=== PATIENT | male | born 1945 | race African-American/Black ===

== ENCOUNTER 2018-05-03 06:57 | Day surgery (SDC) | payer OTHER, BC ==
[2018-05-02 13:56] VITALS: BMI 30.2
[2018-05-03 08:40] VITALS: TEMP 97.8
[2018-05-03 08:50] VITALS: PULSE 55
[2018-05-03 09:46] VITALS: BP 121/66
--- NOTE | 2018-05-04 16:22 | PATH ---
Surgical Pathology Report Patient Name: BETO DIAZ [facility]. Rec. #: [id number] /Age/Gender: 1945 (Age: 72) / M Account: [id number] Location: U-ENDOSCOPY Taken: 05/03/2018 Received: 05/03/2018 Reported: 05/04/2018 Physicians: Obi Díaz M.D. Specimen(s) Received BX HEPATIC FLEXURE POLYP Clinical History Polyp surveillance Final Diagnosis HEPATIC FLEXURE, POLYP, POLYPECTOMY: TUBULAR ADENOMA. Electronically Signed Michael Ramos M.D. Gross Description Received in formalin, labeled "biopsy polyp from hepatic flexure" are 2 keith, irregular portions of soft tissue measuring 0.4 cm. in greatest dimension. The specimen is submitted in toto in one cassette. RASHID/05/03/2018 donald/05/03/2018
== END 2018-05-03 09:46 | disposition home or self-care (01) ==
LOC: JASU-ENDO 06:57
PROVIDERS: ATTEND Internal Medicine Gastroenterology
PROC: 0DBL8ZX Excision of Transverse Colon, Via Natural or Artificial Opening Endoscopic, Diagnostic (ICD-10-PCS; principal; 2018-05-03 08:00)
DX: Z12.11 Encounter for screening for malignant neoplasm of colon (principal); Z86.010 Personal history of colon polyps; K63.5 Polyp of colon; K57.30 Diverticulosis of large intestine without perforation or abscess without bleeding

== ENCOUNTER 2019-07-01 10:05 | Inpatient (IN) | payer OTHER, BC ==
--- NOTE | 2019-07-01 10:27 | PDOC ---
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 Pt states he has been having productive yellow cough associated with nasal congestion x 5 days, with the cough improving. he has been taking robitussin and mucinex, with some improvement. associated with sore throat and hoarse voice. denies SOB, chest pain, fever or chills. He also endorses multiple episodes of watery brown, dark diarrhea x 10 episodes per day during this time, not associated with n/v or abdominal pain He also endorses 3-4 weeks of urinary burning "sometimes," as well as frequency and urgency. No sick contacts or travel. No new changes in medications. No suspicious food intake or triggers or other sick contacts with similar respiratory/GI sx. 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 Social history: Lives with family. No tobacco, ETOH or drug use. Meds: as documented in EMR PMD: Dr Hyatt Review of systems Constitutional: no fevers or chills. No weakness HEENT: +dizziness. +congestion. +sore throat. +hoarse voice. no headache No visual/hearing disturbances. no ear pain, no eye pain or discharge. CVS: no cp or syncope. no palpitations. Resp: no sob. +cough and congestion. Gastrointestinal: no abdominal pain, nausea, vomiting, +diarrhea. Genitourinary: no hematuria. +urgency, frequency and dysuria. MUSCULOSKELETAL: No joint pain and swelling. No neck or back pain. SKIN: no redness or skin changes, no discharge, no rash. No wounds. Hematologic: no easy bruising/bleeding. NEUROLOGIC: No headache, LOC or altered mental status. No weakness, numbness or tingling. Psych: no anxiety or depression Allergic/Immunologic: pcn allergies All other systems reviewed and negative, or as documented in HPI. Physical exam General: awake and alert, NAD. HEENT: NCAT, PERRL, EOMI, clear conjunctiva, anicteric, dry mucus membranes, clear oropharynx, no oral lesions.. no tonsillar hypertrophy, no erythema. no exudates. +hoarse voice, airway patent. no sinus tenderness. Neck: neck supple, FROM Resp: +bilateral expiratory wheezing. normal and even respirations, no respiratory distress CVS: RRR, no murmurs, 2+ peripheral pulses throughout, no peripheral edema Abdomen: soft, NTND, no rebound or guarding. no CVAT Back: nontender, normal inspection and ROM MSK: no edema, JAMA x4, ROM intact. No clubbing or cyanosis. normal bulk and tone. Extremities: no calf tenderness Neuro: alert, oriented appropriately; no focal neurologic deficits Psych: Calm and cooperative Skin: warm and well perfused, cap refill <2 sec, normal color, no rash or skin discoloration. 07/01/19 10:27 07/01/19 10:28 07/01/19 10:45 07/01/19 10:48 07/01/19 12:49 Past History - Past Medical History Allergies/Adverse Reactions: Allergies Allergy/AdvReac Type Severity Reaction Status Date / Time Penicillins Allergy Difficulty Verified 07/01/19 10:13 Breathing Home Medications: Ambulatory Orders Ranolazine [Ranexa] 1,000 mg PO BID 02/26/14 Simvastatin [Zocor -] 80 mg PO DAILY 02/26/14 propRANOLol HCL [Inderal LA -] 160 mg PO HS 12/04/14 Chlorthalidone 25 mg PO DAILY 07/01/19 Losartan Potassium 100 mg PO DAILY 07/01/19 Telmisartan 80 mg PO DAILY 07/01/19 Anemia: No Asthma: No Cancer: Yes (LARYNGEAL,PROSTATE) Cardiac Disorders: Yes (CAD,ASHD,CARDIAC STENTS X5,ANGINA) CVA: No COPD: No CHF: No Dementia: No Diabetes: No GI Disorders: Yes (DIVERTICULOSIS,ESOPHAGITIS,GERD,GASTRITIS,HIATAL HERNIA) Disorders: No HTN: Yes Hypercholesterolemia: Yes Liver Disease: No Seizures: No Thyroid Disease: No - Surgical History Abdominal Surgery: No Appendectomy: No Cardiac Surgery: Yes (CARDIAC [id number],2006-) Cholecystectomy: No Lung Surgery: No Neurologic Surgery: No Orthopedic Surgery: No - Immunization History Immunization Up to Date: Yes - Psycho Social/Smoking Cessation Hx Smoking History: Never smoked Have you smoked in the past 12 months: No Number of Cigarettes Smoked Daily: 0 If you are a former smoker, when did you quit?: 1978 Cigars Per Day: 0 Hx Alcohol Use: No Drug/Substance Use Hx: No Substance Use Type: None Hx Substance Use Treatment: No *Physical Exam - Vital Signs Last Vital Signs Temp Pulse Resp BP Pulse Ox 97.4 F L 65 18 115/64 99 07/01/19 10:10 07/01/19 10:10 07/01/19 10:10 07/01/19 10:10 07/01/19 10:10 Heart Score/ECG Review #1 ECG reviewed & interpreted by me at: 13:25 General ECG Interpretation: Sinus Rhythm, Normal Rate, Normal Intervals 07/01/19 13:43 sinus rhythm 62 bpm, narrow QRS, normal interval. normal ST segments, T wave morphology normal ED Treatment Course - LABORATORY CBC & Chemistry Diagram: 07/01/19 10:57 07/01/19 10:57 Medical Decision Making - Medical Decision Making 07/01/19 10:55 Vital Signs Temp Pulse Resp BP Pulse Ox 97.4 F L 65 18 115/64 99 07/01/19 10:10 07/01/19 10:10 07/01/19 10:10 07/01/19 10:10 07/01/19 10:10 Vital signs reviewed within normal limits, no tachycardia, no fevers nontoxic- appearing. Saturations are 99% on room air and airway is patent. Differential diagnosis includes viral syndrome, URI, bronchitis, influenza, pneumonia, anemia, dehydration, electrolyte/metabolic derangements Plan for flu swab, basic labs check electrolytes, chest x-ray, duo nebs x3 for the wheezing and reassessment labs and lytes with leukopenia, lower than prior baseline low ~3.5K. lytes normal. Cr function elevated 2.5 (baseline from 2013, closer to 1.0) flu positive tamiflu started, discussed risks and benefits of treatment, pt is elderly and has some risk factors, so he elects for treatment. hydration 2L LR simple O2 mask while getting duoneb, for O2 support, due to mild tachypnea CXR also with LLL pneumonia, infiltrative pattern will cover with ceftriaxone/azithromycin. pcn allergy, low risk of crossreactivity with cephalosporin,<1% especially with 3rd gen. blood cultures ordered x2. 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 s/o admitting hospitalist, Dr Robison, 07/01/19 14:03 Discharge - Discharge Information Problems reviewed: Yes Clinical Impression/Diagnosis: Influenza A, RONALDO (acute kidney injury), Dehydration Pneumonia involving left lung Qualifiers: Pneumonia type: due to unspecified organism Lung location: lower lobe of lung Qualified Code(s): J18.9 - Pneumonia, unspecified organism Condition: Guarded - Admission Yes - Follow up/Referral - Patient Discharge Instructions - Post Discharge Activity
[2019-07-01] MEDS ORDERED: ALBUTEROL SO4 2.5/IPRATROPIUM 0.5 INH SOL 3 ML VIAL.NEB. NEB ONE ×4 (10:40→10:45)
[2019-07-01 11:13] LABS: BASO % 0.5 % (0-2.0); EOS % 0.2 % (0-4.5); HEMATOCRIT 36.7 % (35.4-49); HEMOGLOBIN 12.1 GM/dL (11.7-16.9); MCH 30.8 pg (25.7-33.7); MEAN CELL VOLUME 93.4 fl (80-96); MEAN PLT VOLUME 8.4 fl (7.5-11.1); MONO % 11.6 % (3.8-10.2); NEUT % 47.7 % (42.8-82.8); PLATELET COUNT 178 K/MM3 (134-434); RBC 3.93 M/mm3 (4.00-5.60); RDW 13.2 % (11.9-15.9); WHITE BLOOD COUNT 2.5 K/mm3 (4.0-10.0)
[2019-07-01] MEDS ORDERED: LOPERAMIDE HCL 2 MG CAPSULE PO ONE (11:16)
[2019-07-01] MEDS ORDERED: OSELTAMIVIR PHOSPHATE 75 MG CAPSULE PO ONE (11:16)
[2019-07-01] MEDS ORDERED: OSELTAMIVIR PHOSPHATE 75 MG CAPSULE ONE ×2 (11:35→21:56)
[2019-07-01] MEDS ORDERED: LOPERAMIDE HCL 2 MG CAPSULE ONE (11:36)
[2019-07-01 11:44] LABS: ALBUMIN 3.5 g/dl (3.4-5.0); BILIRUBIN,TOTAL 0.4 mg/dL (0.2-1); BLOOD UREA NITROGEN 48.1 mg/dL (7-18); CALCIUM 9.3 mg/dL (8.5-10.1); CREATININE 2.5 mg/dL (0.55-1.3); POTASSIUM 4.1 mmol/L (3.5-5.1); TOT PROT 6.7 g/dl (6.4-8.2)
[2019-07-01] MEDS ORDERED: LACTATED RINGERS SOLUTION 1000 ML INFUS.BAG IV ONE ×2 (12:45)
[2019-07-01] MEDS ORDERED: CEFTRIAXONE 1,000 MG in DEXTROSE 5%-WATER - 50 ML IVPB ONE (13:57)
[2019-07-01] MEDS ORDERED: AZITHROMYCIN 500 MG TABLET PO ONE (13:57)
[2019-07-01] MEDS ORDERED: CEFTRIAXONE 1 GM/50 ML BAG ONE (14:05)
[2019-07-01] MEDS ORDERED: AZITHROMYCIN 500 MG TABLET ONE (14:05)
--- NOTE | 2019-07-01 14:47 | HP ---
CC: Diarrhea, flu HISTORY OF PRESENT ILLNESS: Thank you Dr. Hyatt for allowing [facility] to take part in the ongoing care of your patient. In summation, the patient presents for transient shortness of breath alongside abdominal pain that is been present since around Coward. Nothing makes it better or worse, he is not requiring oxygen. He has not had these symptoms before. He was around some sick contacts around the holidays, but he does not know if they are diagnosed with anything in particular. He denies any specific chest pain, shortness of breath, medication changes. Denies recent abdominal surgeries, denies recent antibiotic use. The diarrhea is watery and brown it is up to 5-10 episodes per day. He denies any history of prior renal disease and is noted to have elevated creatinine but is still making urine. He was given tamiflu in ER; PCP contacted by their staff but unable to ascertain baseline Cr. PAST MEDICAL HISTORY: Per history of present illness, medication list reviewed with patient is being reconciled. CAD (patient of Dr. Jones seen here by Dr. Vásquez in the past). PAST SURGICAL HISTORY: No recent surgical procedures Social History: Patient denies ongoing alcohol, IV drug, or tobacco abuse Allergies Penicillins Allergy (Verified 07/01/19 10:13) Difficulty Breathing HOME MEDICATIONS: Home Medications Medication Instructions Recorded Aspirin [ASA -] 81 mg PO DAILY 12/24/13 Cranberry Fruit Extract [Cranberry 1 gm PO BID 02/26/14 Extract] Losartan/Hydrochlorothiazide 1 each PO DAILY 02/26/14 [Hyzaar 100-12.5 Tablet] Ranolazine [Ranexa] 1,000 mg PO BID 02/26/14 Simvastatin [Zocor -] 80 mg PO DAILY 02/26/14 propRANOLol HCL [Inderal LA -] 160 mg PO HS 12/04/14 Atenolol/Chlorthalidone 1 tab PO DAILY 05/02/18 [Atenolol-Chlorthalidone 100-25] REVIEW OF SYSTEMS 10 sys ROS done and negative aside from HPI PHYSICAL EXAMINATION Vital Signs - 24 hr 07/01/19 07/01/19 10:10 11:14 Temperature 97.4 F L Pulse Rate 65 Respiratory 18 Rate Blood Pressure 115/64 O2 Sat by Pulse 99 100 Oximetry (%) GENERAL: Awake, alert, and fully oriented, in no acute distress. HEAD: Normal with no signs of trauma. EYES: Pupils equal, round and reactive to light, extraocular movements intact, sclera anicteric, conjunctiva clear. No lid lag. EARS, NOSE, THROAT: Ears normal, nares patent, oropharynx clear without exudates. Moist mucous membranes. NECK: Normal range of motion, supple without lymphadenopathy, JVD, or masses. LUNGS: Breath sounds equal, clear to auscultation bilaterally. No wheezes, and no crackles. No accessory muscle use. HEART: Regular rate and rhythm, normal S1 and S2 without murmur, rub or gallop. ABDOMEN: Soft, nontender, not distended, normoactive bowel sounds, no guarding, no rebound, no masses. No hepatomegaly or splenomegaly. MUSCULOSKELETAL: Normal range of motion at all joints. No bony deformities or tenderness. No CVA tenderness. UPPER EXTREMITIES: 2+ pulses, warm, well-perfused. No cyanosis. No clubbing. No peripheral edema. LOWER EXTREMITIES: 2+ pulses, warm, well-perfused. No calf tenderness. No peripheral edema. NEUROLOGICAL: Cranial nerves II-XII intact. Normal speech. Normal gait. PSYCHIATRIC: Cooperative. Good eye contact. Appropriate mood and affect. SKIN: Warm, dry, normal turgor, no rashes or lesions noted, normal capillary refill. Laboratory Results - last 24 hr 07/01/19 07/01/19 07/01/19 10:42 10:57 10:57 WBC 2.5 L RBC 3.93 L Hgb 12.1 Hct 36.7 MCV 93.4 MCH 30.8 MCHC 33.0 RDW 13.2 Plt Count 178 MPV 8.4 Absolute Neuts (auto) 1.2 L Neutrophils % 47.7 D Lymphocytes % 40.0 D Monocytes % 11.6 H Eosinophils % 0.2 D Basophils % 0.5 Nucleated RBC % 0 Sodium 137 Potassium 4.1 Chloride 107 Carbon Dioxide 24 Anion Gap 6 L BUN 48.1 H Creatinine 2.5 H Est GFR (CKD-EPI)AfAm 28.06 Est GFR (CKD-EPI)NonAf 24.21 Random Glucose 99 Serum Osmolality 298 Calcium 9.3 Total Bilirubin 0.4 AST 26 ALT 29 Alkaline Phosphatase 36 L Total Protein 6.7 Albumin 3.5 Influenza A (Rapid) Positive A Influenza B (Rapid) Negative EKG reviewed CXR reviewed; lobar infiltrate Flu A+ CT chest pending CT abdomen/pelvis pending to r/o renal stone, etc. given cyclincal pain and +UA Ucx, Bcx, Scx, Legionella/PNC Ag pending Bladder scan pending Pulmonary consult pending ASSESSMENT/PLAN: Patient presents with a chief complaint of diarrhea as well as shortness of breath, he has potential pneumonia on chest x-ray as well as diarrhea with potential colitis. He has positive influenza A on nasal swab and monocytosis with leukopenia and evident on his CBC. HE STATES THAT HE GAVE HIS MEDICATIONS TO NURSING. I TRIED TO CALL PHARMACY TO VERIFY BUT CLOSED. WILL DO IN AM AND RESTART HOME MEDS NEEDED. Problems include: Influenza +/- Bacterial PNA with lobar infiltrate and history consistent with CAP (Abx, FU micro) RONALDO (multiple LEONARDO inhibitors on home med list; need to verify. That with chlorthalidone easily could have contributed) Diarrhea (Likely 2/2 diarrhea but given leukopenia with mild monocytosis at least sent out some studies in case reflects underlying issues) Monocytosis (seen with acute viral syndrome; monitor) Hx CAD, no current symptoms. Prior CV testing noted per documentation. Hx HLD Hx Prostate Cancer Obesity (BMI 30.7) Visit type - Emergency Visit Emergency Visit: Yes ED Registration Date: 07/01/19 Care time: The patient presented to the Emergency Department on the above date and was hospitalized for further evaluation of their emergent condition. - New Patient This patient is new to me today: Yes Date on this admission: 07/01/19 - Critical Care Critical Care patient: No
[2019-07-01 14:53] LABS: EPI CELLS 2.2 /HPF (0-5/HPF); HYALINE CASTS 1 /lpf (0-8); URINE APPEARANCE CLEAR; URINE BACTERIA 992.3 /hpf (NEGATIVE); URINE BILIRUBIN NEGATIVE (NEGATIVE); URINE COLOR YELLOW; URINE GLUCOSE (UA) NEGATIVE (NEGATIVE); URINE KETONE NEGATIVE (NEGATIVE); URINE LEUK ESTERASE TRACE (NEGATIVE); URINE NITRITE POSITIVE (NEGATIVE); URINE PROTEIN TRACE (NEGATIVE); URINE RBC 1 /hpf (0-4); URINE UROBILINOGEN 0.2 mg/dL (0.2-1.0); URINE WBC 13 /hpf (0-5)
[2019-07-01] MEDS: OSELTAMIVIR PHOSPHATE 75 MG CAPSULE PO SCH (22:23)
[2019-07-02 06:43] LABS: HEMATOCRIT 34.4 % (35.4-49); HEMOGLOBIN 11.6 GM/dL (11.7-16.9); MCH 31.3 pg (25.7-33.7); MCHC 33.7 g/dl (32.0-35.9); MEAN CELL VOLUME 92.9 fl (80-96); MEAN PLT VOLUME 8.8 fl (7.5-11.1); PLATELET COUNT 175 K/MM3 (134-434); RDW 13.2 % (11.9-15.9); WHITE BLOOD COUNT 2.7 K/mm3 (4.0-10.0)
[2019-07-02 07:24] LABS: ALBUMIN 3.3 g/dl (3.4-5.0); BILIRUBIN,TOTAL 0.4 mg/dL (0.2-1); BLOOD UREA NITROGEN 38.7 mg/dL (7-18); CALCIUM 8.9 mg/dL (8.5-10.1); CREATININE 1.9 mg/dL (0.55-1.3); MAGNESIUM 1.8 mg/dL (1.8-2.4); TOT PROT 6.1 g/dl (6.4-8.2)
[2019-07-02] MEDS ORDERED: AZITHROMYCIN IVPB 500 MG in DEXTROSE 5%-WATER - 250 ML IVPB SCH (10:00)
[2019-07-02] MEDS: CEFTRIAXONE 1 GM in DEXTROSE 5%-WATER - 50 ML IVPB SCH (11:00)
[2019-07-02] MEDS: OSELTAMIVIR PHOSPHATE 75 MG CAPSULE PO SCH ×2 (11:00→22:02)
--- NOTE | 2019-07-02 11:31 | EKG ---
Test Reason : Blood Pressure : / mmHG Vent. Rate : 062 BPM Atrial Rate : 062 BPM P-R Int : 176 ms QRS Dur : 092 ms QT Int : 416 ms P-R-T Axes : 054 -02 023 degrees QTc Int : 422 ms NORMAL SINUS RHYTHM NORMAL ECG WHEN COMPARED WITH ECG OF 26-FEB-2014 05:10, T WAVE VARIATION Confirmed by BRANDI MCCARTY MD ([id number]) on 07/02/2019 11:31:31 AM Referred By: Confirmed By:BRANDI MCCARTY MD
[2019-07-02] MEDS ORDERED: OSELTAMIVIR PHOSPHATE 75 MG CAPSULE ONE (12:14)
[2019-07-02] MEDS ORDERED: AZITHROMYCIN IVPB 500 MG/250 ML BAG IVPB ONE (12:15)
[2019-07-02] MEDS ORDERED: CEFTRIAXONE 1 GM/50 ML BAG ONE (12:15)
[2019-07-02] MEDS: RANOLAZINE E.R. 1,000 MG TABLET (FP) PO SCH ×2 (12:41→22:02)
--- NOTE | 2019-07-02 12:47 | PN ---
Progress Note (short form) - Note Progress Note: Hospitalist Medicine Resting in bed, upset that his room in the ED is cold. Has had productive cough w/ yellow sputum. Feeling weak Vitals 07/02/19 07:00 Pulse Rate [ 64 Apical] Respiratory 16 Rate Blood Pressure 129/69 [Left Arm] O2 Sat by Pulse 96 Oximetry (%) Physical Exam general: resting in bed, +hoarse voice heent: NCAT neck: +mild cervical lymphadenopathy appreciated cardio: S1, S2 RRR. no r/m/g pulm: +few wheezes. no accessory m usage abdomen: nontender, nondistended. obese LE: 2+ pulses no edema neuro: offbearer 2-12 grossly intact Laboratory Tests 07/01/19 07/02/19 07/02/19 10:42 05:40 05:40 WBC 2.7 L Hgb 11.6 L Hct 34.4 L Plt Count 175 Sodium 140 Potassium 4.0 Chloride 110 H Carbon Dioxide 23 BUN 38.7 H Creatinine 1.9 H Random Glucose 96 Alkaline Phosphatase 35 L Total Protein 6.1 L Albumin 3.3 L HIV 1&2 Ag/Ab, 4th Gen Influenza A (Rapid) Positive A Influenza B (Rapid) Negative 07/02/19 05:40 Hgb Albumin Hep C Ab Diagnostic Pending HIV 1&2 Ag/Ab, 4th Gen Pending Influenza A (Rapid) Influenza B (Rapid) Microbiology 07/01/19 14:41 Urine - Urine Clean Catch Urine Culture - Preliminary Lactose Fermenting Neg Bacilli Imaging 07/01/19: CXR: LLL infiltrate, suspicious for LLL PNA. 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 #CAP, flu+ -w/ LLL infiltrate, fluA+ -on cef, zithro (07/02) -on tamiflu 75mg BID (07/01) -ucx (+) lact ferm (-) bacilli, covered by cef -c/t follow blood, ucx, stool studies, sputum cx -isolation precautions -encourage PO intake -Tylenol PRN for fever/pain -f/u chest CT #R/o nephrolithiasis -f/u spiral CT, done - result, pending -as w/ UTI #Diarrhea -likely 2/2 PNA, flu -however f/u stool studies #RONALDO vs. RONALDO on CKD -unknown baseline -continue to encourage PO intake -f/u spiral CT -f/u urine lytes #CAD -c/w ranexa #HTN -c/w propranolol #F/E/N encourage PO intake continue to follow lytes reg diet, as tolerated #PPX DVT: SCD's #Dispo admitted to med-surg pending bed from ER <TeeteeCharity - Last Filed: 07/02/19 15:14> - Note Progress Note: Seen and examined; please see resident note for further histoorical details. I agre with the plan and historical information as deetailed above aside from as supplementeed below. I personally verified all shaffer historical and PE findings in addition to diagnostic, lab, and imaging data. Discussed at length with the resident team and indicated consulting services. No further subjective issues. 10 sys ROS done and neegative aside from HPI VS labs imaging done and negative aside from HPI NAD AAO resting in bed not on O2 CN2-12 at established baseline with no new FNDs. HR wnl,+s1/2 Lungs clear, w/ sym exp NT ND +BS Neck without JVD or thyromegaly Microbiology 07/02/19 20:55 Sputum - Expectorated Gram Stain - Final 07/01/19 14:18 Blood - Peripheral Venous Blood Culture - Preliminary NO GROWTH OBTAINED AFTER 48 HOURS, INCUBATION TO CONTINUE FOR 3 DAYS. 07/01/19 14:18 Blood - Peripheral Venous Blood Culture - Preliminary NO GROWTH OBTAINED AFTER 48 HOURS, INCUBATION TO CONTINUE FOR 3 DAYS. 07/02/19 20:40 Urine For Antigen Detection Legionella Antigen - Final 07/02/19 20:40 Urine For Antigen Detection Streptococcus pneumoniae Antigen (M - Final 07/01/19 14:41 Urine - Urine Clean Catch Urine Culture - Final Klebsiella Pneumoniae CT chest final read pending EKG reviewed CXR reviewed; lobar infiltrate Flu A+ CT abdomen/pelvis pending to r/o renal stone, etc. given cyclincal pain and +UA ; read pending alongside chest study Ucx, Bcx, Scx, Legionella/PNC Ag pending Bladder scan pending Pulmonary consult pending ASSESSMENT/PLAN: Improved; CAP likely with flu A+, diarrhea improved. Problems include: Influenza +/- Bacterial PNA with lobar infiltrate and history consistent with CAP (Abx, FU micro) RONALDO (multiple LEONARDO inhibitors on home med list; need to verify. That with chlorthalidone easily could have contributed) Diarrhea (Likely 2/2 diarrhea but given leukopenia with mild monocytosis at least sent out some studies in case reflects underlying issues) Monocytosis (seen with acute viral syndrome; monitor) Hx CAD, no current symptoms. Prior CV testing noted per documentation. Hx HLD Hx Prostate Cancer Obesity (BMI 30.7) <Hipolito Boudreaux - Last Filed: 07/04/19 06:22>
[2019-07-02] MEDS ORDERED: ACETAMINOPHEN 325 MG TABLET (FP) PO PRN (12:53)
[2019-07-02 13:33] LABS: MAGNESIUM 2.2 mg/dL (1.8-2.4)
--- NOTE | 2019-07-02 15:18 | CONSULT ---
Consult Consult Specialty:: Nephrology Reason for Consultation:: RONALDO - History of Present Illness Chief Complaint: diarrhea History of Present Illness: Pt is a 73 year old male with pmhx of laryngeal cancer, cad, gerd, htn, hld and prostate cancer who presents to the ER with cough. He also complains of diarrhea on the and . He says that he had over 20 episodes. He was found to be in acute renal failure and I was called to evaluate him. He denies history of CKD. He is on an arb at home. He denies nsaid use. He was found to be positive for Flu. 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 History of Recent Travel: No Home Medications - Allergies Allergies/Adverse Reactions: Allergies Allergy/AdvReac Type Severity Reaction Status Date / Time Penicillins Allergy Difficulty Verified 07/01/19 10:13 Breathing - Home Medications Home Medications: Ambulatory Orders Ranolazine [Ranexa] 1,000 mg PO BID 02/26/14 Simvastatin [Zocor -] 80 mg PO DAILY 02/26/14 propRANOLol HCL [Inderal LA -] 160 mg PO HS 12/04/14 Chlorthalidone 25 mg PO DAILY 07/01/19 Losartan Potassium 100 mg PO DAILY 07/01/19 Telmisartan 80 mg PO DAILY 07/01/19 Family Medical History Family History: Denies Review of Systems - Review of Systems Constitutional: reports: Malaise Eyes: reports: No Symptoms HENT: reports: No Symptoms Neck: reports: No Symptoms Cardiovascular: reports: No Symptoms Respiratory: reports: Cough Gastrointestinal: reports: Diarrhea Genitourinary: reports: No Symptoms Musculoskeletal: reports: No Symptoms Integumentary: reports: No Symptoms Neurological: reports: No Symptoms Endocrine: reports: No Symptoms Hematology/Lymphatic: reports: No Symptoms Psychiatric: reports: No Symptoms Physical Exam Vital Signs: Vital Signs Temperature 98.2 F 07/02/19 10:06 Pulse Rate 82 07/02/19 10:06 Respiratory Rate 82 H 07/02/19 10:06 Blood Pressure 121/78 07/02/19 10:06 O2 Sat by Pulse Oximetry (%) 100 07/02/19 10:06 Constitutional: Yes: Calm Eyes: Yes: Conjunctiva Clear HENT: Yes: Atraumatic Neck: Yes: Supple Cardiovascular: Yes: S1, S2 Respiratory: Yes: CTA Bilaterally Gastrointestinal: Yes: Normal Bowel Sounds, Soft Renal/: Yes: WNL Musculoskeletal: Yes: WNL Extremities: Yes: WNL Edema: No Neurological: Yes: Oriented Psychiatric: Yes: Oriented Labs: CBC, BMP 07/02/19 05:40 07/02/19 05:40 Laboratory Tests 07/01/19 07/01/19 07/02/19 10:57 14:41 05:40 Creatinine 2.5 H 1.9 H Urine Protein Trace Urine Blood Negative Imaging - Results Chest X-ray: Report Reviewed Ultrasound: Report Reviewed Problem List - Problems (1) RONALDO (acute kidney injury) Code(s): N17.9 - ACUTE KIDNEY FAILURE, UNSPECIFIED (2) Dehydration Code(s): E86.0 - DEHYDRATION (3) Influenza A Code(s): J10.1 - FLU DUE TO OTH IDENT INFLUENZA VIRUS W OTH RESP MANIFEST Assessment/Plan Current Medications Generic Name Dose Route Start Last Admin Trade Name Freq PRN Reason Stop Dose Admin Acetaminophen 650 mg 07/02/19 12:53 Tylenol - PO Q6H PRN MODERATE PAIN Atorvastatin Calcium 40 mg 07/02/19 22:00 Lipitor - PO HS CINDY Azithromycin 500 mg/ Dextrose 250 mls @ 250 mls/hr 07/02/19 10:00 07/02/19 11 :00 IVPB 250 mls/hr DAILY CINDY Administration Ceftriaxone Sodium 1 gm/ 50 mls @ 100 mls/hr 07/02/19 10:00 07/02/19 11:00 Dextrose IVPB 100 mls/hr DAILY CINDY Administration Oseltamivir Phosphate 75 mg 07/01/19 22:00 07/02/19 11:00 Tamiflu - PO 07/06/19 21:59 75 mg BID CINDY Administration Propranolol HCl 160 mg 07/02/19 22:00 Inderal La - PO HS CINDY Ranolazine 1,000 mg 07/02/19 10:00 07/02/19 12:41 Ranexa - PO Not Given BID CINDY Impression 1. RONALDO 2. htn 3. influenza 4. prostate cancer 5. laryngeal cancer 6. hld Plan - pt says olmesartan was switched to losartan, he is not taking both - renal function is improving - will restart fluids - repeat labs in am - likely pre-renal disease - avoid nsaids - hold arb for now
[2019-07-02] MEDS ORDERED: SODIUM CHLORIDE 0.45% 1,000 ML IV SCH (18:30)
[2019-07-02 18:45] VITALS: BMI 29.0
[2019-07-02] MEDS ORDERED: PT OWN MED DRAWER 7, Y5N ONE (21:10)
[2019-07-02] MEDS: ATORVASTATIN CA 40 MG TABLET (FP) PO SCH (22:02)
[2019-07-03 08:15] LABS: BASO % 0.4 % (0-2.0); EOS % 1.3 % (0-4.5); HEMATOCRIT 33.9 % (35.4-49); HEMOGLOBIN 11.4 GM/dL (11.7-16.9); LYMPH % 44.1 % (8-40); MCH 31.1 pg (25.7-33.7); MCHC 33.5 g/dl (32.0-35.9); MEAN CELL VOLUME 92.7 fl (80-96); MEAN PLT VOLUME 8.7 fl (7.5-11.1); MONO % 13.2 % (3.8-10.2); PLATELET COUNT 165 K/MM3 (134-434); RBC 3.66 M/mm3 (4.00-5.60); RDW 12.8 % (11.9-15.9); WHITE BLOOD COUNT 2.6 K/mm3 (4.0-10.0)
[2019-07-03 08:45] LABS: ALBUMIN 3.2 g/dl (3.4-5.0); BILIRUBIN,TOTAL 0.6 mg/dL (0.2-1); BLOOD UREA NITROGEN 30.2 mg/dL (7-18); CREATININE 1.6 mg/dL (0.55-1.3); MAGNESIUM 2.2 mg/dL (1.8-2.4); N-TERMINAL BNP 470.8 pg/ml (5-450); PHOSPHOROUS 2.7 mg/dL (2.5-4.9)
[2019-07-03] MEDS ORDERED: cefTRIAXone SODIUM 1 GM VIAL ONE (10:05)
[2019-07-03] MEDS ORDERED: DEXTROSE 5%-WATER - 50 ML IVPB ONE (10:05)
[2019-07-03] MEDS: CEFTRIAXONE 1 GM in DEXTROSE 5%-WATER - 50 ML IVPB SCH (10:31)
[2019-07-03] MEDS: AZITHROMYCIN IVPB 500 MG/250 ML BAG IVPB SCH (10:32)
[2019-07-03] MEDS: OSELTAMIVIR PHOSPHATE 75 MG CAPSULE PO SCH ×2 (10:35→22:17)
[2019-07-03] MEDS: RANOLAZINE E.R. 1,000 MG TABLET (FP) PO SCH ×2 (10:35→22:17)
--- NOTE | 2019-07-03 17:00 | PN ---
Progress Note (short form) - Note Progress Note: Hospitalist Medicine still w/ raspy voice. States that he feels as if his breathing has improved Vitals 07/03/19 14:00 Temperature 98.7 F Pulse Rate 80 Respiratory 18 Rate Blood Pressure 125/61 Physical Exam general: resting in bed, +hoarse voice heent: NCAT cardio: S1, S2 RRR. no r/m/g pulm: +wheezes. no accessory m usage abdomen: nontender, nondistended. obese LE: 2+ pulses no edema neuro: peanut cleaner 2-12 grossly intact Laboratory Tests 07/03/19 07/03/19 07:20 07:20 WBC 2.6 L Hgb 11.4 L Hct 33.9 L Plt Count 165 Sodium 140 Potassium 4.0 Chloride 107 Carbon Dioxide 26 BUN 30.2 H Creatinine 1.6 H Random Glucose 96 Alkaline Phosphatase 36 L B-Natriuretic Peptide 470.8 H Total Protein 6.0 L Albumin 3.2 L Microbiology 07/02/19 20:55 Sputum - Expectorated Gram Stain - Final 07/02/19 20:40 Urine For Antigen Detection Legionella Antigen - Final 07/02/19 20:40 Urine For Antigen Detection Streptococcus pneumoniae Antigen (M - Final 07/01/19 14:41 Urine - Urine Clean Catch Urine Culture - Final Klebsiella Pneumoniae 07/01/19 14:18 Blood - Peripheral Venous Blood Culture - Preliminary NO GROWTH OBTAINED AFTER 48 HOURS, INCUBATION TO CONTINUE FOR 3 DAYS. 07/01/19 14:18 Blood - Peripheral Venous Blood Culture - Preliminary NO GROWTH OBTAINED AFTER 48 HOURS, INCUBATION TO CONTINUE FOR 3 DAYS. Imaging 07/01/19: CXR: LLL infiltrate, suspicious for LLL PNA. 07/01/19: CTAP: WNL; no acute abnormality 07/01/19: EKG: NSR, rate 62bpm, qtc 422ms 07/02/19: chest CT, CTAP: minimal atelectasis L base, calc granuloma in lingula , mucous plugging in LLL. centrilobular emphysema in upper lobes. multiple low density lesions in the liver likely represent cysts. correlation with ultrasound is recommended. kidney cyst - L kidney 1.6cm. calcified plaque aorta , no aneurysm. diverticulosis. radiopaque seeds in prostate. increased density in the dome of the bladder could represent a mass or dense fluid within a bladder diverticulum. ultrasound imaging or cyst warranted. healed rib fx. 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 #CAP, flu+ -w/ LLL infiltrate, fluA+ -on cef, zithro (07/02) -on tamiflu 75mg BID (07/01) -ucx (+) klesbsiella -c/t follow blood, ucx, stool studies, sputum cx -isolation precautions -encourage PO intake -Tylenol PRN for fever/pain #R/o ?bladder diverticulum -r/o bladder mass, has hx prostate CA -f/u renal, bladder sono -uro consulted: Dr. Lawson #hx liver cysts -as seen on CTAP -f/u abd sono, as rec per radio #Diarrhea -likely 2/2 PNA, flu -however f/u stool studies #RONALDO vs. RONALDO on CKD -unknown baseline -hold ARB for now -c/w 1/2 NS 100 cc/hr -f/u urine lytes -Nephro: Dr. Sandoval #CAD -c/w ranexa #HTN -c/w propranolol #F/E/N 1/2 NS 100 cc/hr continue to follow lytes reg diet, as tolerated #PPX DVT: SCD's #Dispo cont'd monitoring on med-surg anticipate d/c 24hrs on PO abx, pending uro w/u <Charity Kingsley - Last Filed: 07/03/19 17:10> - Note Progress Note: Seen and examined; please see resident note for further histoorical details. I agre with the plan and historical information as deetailed above aside from as supplementeed below. I personally verified all shaffer historical and PE findings in addition to diagnostic, lab, and imaging data. Discussed at length with the resident team and indicated consulting services. No further subjective issues. 10 sys ROS done and neegative aside from HPI VS labs imaging done and negative aside from HPI NAD AAO resting in bed not on O2 CN2-12 at established baseline with no new FNDs. HR wnl,+s1/2 Lungs clear, w/ sym exp NT ND +BS Neck without JVD or thyromegaly Microbiology 07/02/19 20:55 Sputum - Expectorated Gram Stain - Final 07/01/19 14:18 Blood - Peripheral Venous Blood Culture - Preliminary NO GROWTH OBTAINED AFTER 48 HOURS, INCUBATION TO CONTINUE FOR 3 DAYS. 07/01/19 14:18 Blood - Peripheral Venous Blood Culture - Preliminary NO GROWTH OBTAINED AFTER 48 HOURS, INCUBATION TO CONTINUE FOR 3 DAYS. 07/02/19 20:40 Urine For Antigen Detection Legionella Antigen - Final 07/02/19 20:40 Urine For Antigen Detection Streptococcus pneumoniae Antigen (M - Final 07/01/19 14:41 Urine - Urine Clean Catch Urine Culture - Final Klebsiella Pneumoniae ASSESSMENT/PLAN: Improved; CAP likely with flu A+, diarrhea improved. Uro consult pending; pending records with laryngeal CA. Continues ab and is improved with RONALDO. If all is well likely in 24-36H DC. Problems include: CAP w/ Influenza A+ (Abx, FU final cx. Will do 7-10 days with likely transition to PO in the AM) RONALDO (Improved; avoid nephrotoxins and decrrase fluids) Complicated klebsiella UTI (+Cx 100k with Sn <1 Ceft so OK with current coverage ; FU with uro given imaging findings) Likely COPD (Emphysematous changes noted; can consider pred if no symptomatic improvement with FU with pulmonary for OP PFTs and GIANNI eval given obesity) Diarrhea (Resolved) Monocytosis (Improved) Hx CAD, no current symptoms. Prior CV testing noted per documentation. Hx HLD Hx Prostate Cancer Laryngeal Cancer Obesity (BMI 30.7) Full Code <Hipolito Boudreaux - Last Filed: 07/04/19 06:27>
--- NOTE | 2019-07-03 17:29 | CON.GU ---
Consult - History of Present Illness History of Present Illness: 73 yo male with h/o prostate cancer s/p seeds/XRT many yrs ago, last seen in the office approx 4 yrs ago. Now admitted with cough/diarrhea. CT with poss bladder mass. Denies any hematuria. 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 History of Recent Travel: No Home Medications - Allergies Allergies/Adverse Reactions: Allergies Allergy/AdvReac Type Severity Reaction Status Date / Time Penicillins Allergy Difficulty Verified 07/01/19 10:13 Breathing - Home Medications Home Medications: Ambulatory Orders Ranolazine [Ranexa] 1,000 mg PO BID 02/26/14 Simvastatin [Zocor -] 80 mg PO DAILY 02/26/14 propRANOLol HCL [Inderal LA -] 160 mg PO HS 12/04/14 Chlorthalidone 25 mg PO DAILY 07/01/19 Losartan Potassium 100 mg PO DAILY 07/01/19 Telmisartan 80 mg PO DAILY 07/01/19 Physical Exam- Vital Signs: Vital Signs Temperature 98.7 F 07/03/19 14:00 Pulse Rate 80 07/03/19 14:00 Respiratory Rate 18 07/03/19 14:00 Blood Pressure 125/61 07/03/19 14:00 O2 Sat by Pulse Oximetry (%) 94 L 07/02/19 21:00 Labs: CBC, BMP 07/03/19 07:20 07/03/19 07:20 Imaging - Results Cat Scan: Report Reviewed Problem List - Problems (1) Prostate cancer Assessment/Plan: will plan for cystoscopy as outpt. pt understands impottance of follow up. psa ordered Code(s): C61 - MALIGNANT NEOPLASM OF PROSTATE
--- NOTE | 2019-07-03 17:44 | PN ---
Progress Note, Physician History of Present Illness: Pt seen and examined at bedside. He is awake and alert. He feels better today. - Current Medication List Current Medications: Active Medications Acetaminophen (Tylenol -) 650 mg PO Q6H PRN PRN Reason: MODERATE PAIN Atorvastatin Calcium (Lipitor -) 40 mg PO HS [facility] Last Admin: 07/02/19 22:02 Dose: 40 mg Chlorthalidone (Hygroton -) 25 mg PO DAILY [facility] Ceftriaxone Sodium 1 gm/ (Dextrose) 50 mls @ 100 mls/hr IVPB DAILY [facility] Last Admin: 07/03/19 10:31 Dose: 100 mls/hr Sodium Chloride (1/2 Normal Saline) 1,000 mls @ 100 mls/hr IV ASDIR [facility] Last Admin: 07/02/19 19:14 Dose: 100 mls/hr Azithromycin (Zithromax 500mg Ivpb (Pre-Docked)) 500 mg in 250 mls @ 250 mls/ hr IVPB DAILY [facility] Last Admin: 07/03/19 10:32 Dose: 250 mls/hr Oseltamivir Phosphate (Tamiflu -) 75 mg PO BID [facility] Stop: 07/06/19 21:59 Last Admin: 07/03/19 10:35 Dose: 75 mg Propranolol HCl (Inderal La -) 160 mg PO HS [facility] Last Admin: 07/02/19 22:02 Dose: 160 mg Ranolazine (Ranexa -) 1,000 mg PO BID [facility] Last Admin: 07/03/19 10:35 Dose: 1,000 mg - Objective Vital Signs: Vital Signs Temperature 98.7 F 07/03/19 14:00 Pulse Rate 80 07/03/19 14:00 Respiratory Rate 18 07/03/19 14:00 Blood Pressure 125/61 07/03/19 14:00 O2 Sat by Pulse Oximetry (%) 94 L 07/02/19 21:00 Constitutional: Yes: Calm Eyes: Yes: Conjunctiva Clear HENT: Yes: Atraumatic Cardiovascular: Yes: S1, S2 Respiratory: Yes: CTA Bilaterally Genitourinary: Yes: WNL Musculoskeletal: Yes: WNL Edema: No Neurological: Yes: Oriented Psychiatric: Yes: Oriented Labs: CBC, BMP 07/03/19 07:20 07/03/19 07:20 Problem List - Problems (1) RONALDO (acute kidney injury) Code(s): N17.9 - ACUTE KIDNEY FAILURE, UNSPECIFIED (2) Dehydration Code(s): E86.0 - DEHYDRATION (3) Influenza A Code(s): J10.1 - FLU DUE TO OTH IDENT INFLUENZA VIRUS W OTH RESP MANIFEST Assessment/Plan Current Medications Generic Name Dose Route Start Last Admin Trade Name Freq PRN Reason Stop Dose Admin Acetaminophen 650 mg 07/02/19 12:53 Tylenol - PO Q6H PRN MODERATE PAIN Atorvastatin Calcium 40 mg 07/02/19 22:00 07/02/19 22:02 Lipitor - PO 40 mg HS CINDY Administration Chlorthalidone 25 mg 07/04/19 10:00 Hygroton - PO DAILY CINDY Ceftriaxone Sodium 1 gm/ 50 mls @ 100 mls/hr 07/02/19 10:00 07/03/19 10:31 Dextrose IVPB 100 mls/hr DAILY C[facility]Y Administration Sodium Chloride 1,000 mls @ 100 mls/hr 07/02/19 18:30 07/02/19 19:14 1/2 Normal Saline IV 100 mls/hr ASDIR CINDY Administration Azithromycin 500 mg in 250 mls @ 250 mls/hr 07/03/19 10:00 07/03/19 10:32 Zithromax 500mg Ivpb (Pre-Docked) IVPB 250 mls/hr DAILY [facility] Administration Oseltamivir Phosphate 75 mg 07/01/19 22:00 07/03/19 10:35 Tamiflu - PO 07/06/19 21:59 75 mg BID CINDY Administration Propranolol HCl 160 mg 07/02/19 22:00 07/02/19 22:02 Inderal La - PO 160 mg HS C[facility]Y Administration Ranolazine 1,000 mg 07/02/19 10:00 07/03/19 10:35 Ranexa - PO 1,000 mg BID C[facility]Y Administration Impression 1. RONALDO 2. htn 3. influenza 4. prostate cancer 5. laryngeal cancer 6. hld Plan - renal function is improving - can decrease rate of fluids - repeat labs in am - likely pre-renal disease - avoid nsaids - hold arb for now
[2019-07-03] MEDS ORDERED: SODIUM CHLORIDE 0.45% 1,000 ML IV SCH (17:45)
[2019-07-03] MEDS: ATORVASTATIN CA 40 MG TABLET (FP) PO SCH (22:17)
[2019-07-04 08:11] LABS: BASO % 0.2 % (0-2.0); EOS % 0.5 % (0-4.5); HEMATOCRIT 33.8 % (35.4-49); HEMOGLOBIN 11.3 GM/dL (11.7-16.9); LYMPH % 29.2 % (8-40); MCH 31.1 pg (25.7-33.7); MCHC 33.5 g/dl (32.0-35.9); MEAN CELL VOLUME 92.8 fl (80-96); MEAN PLT VOLUME 8.9 fl (7.5-11.1); MONO % 9.4 % (3.8-10.2); NEUT % 60.7 % (42.8-82.8); PLATELET COUNT 179 K/MM3 (134-434); RBC 3.64 M/mm3 (4.00-5.60); RDW 12.9 % (11.9-15.9); WHITE BLOOD COUNT 3.8 K/mm3 (4.0-10.0)
[2019-07-04 08:42] LABS: ALBUMIN 3.2 g/dl (3.4-5.0); BILIRUBIN,TOTAL 1.2 mg/dL (0.2-1); CALCIUM 9.1 mg/dL (8.5-10.1); CREATININE 1.6 mg/dL (0.55-1.3); MAGNESIUM 2.3 mg/dL (1.8-2.4); PHOSPHOROUS 2.4 mg/dL (2.5-4.9); POTASSIUM 4.4 mmol/L (3.5-5.1); TOT PROT 6.2 g/dl (6.4-8.2)
[2019-07-04] MEDS ORDERED: CHLORTHALIDONE 25 MG TABLET PO SCH (10:00)
[2019-07-04] MEDS ORDERED: cefTRIAXone SODIUM 1 GM VIAL ONE (10:24)
[2019-07-04] MEDS ORDERED: DEXTROSE 5%-WATER - 50 ML IVPB ONE (10:24)
[2019-07-04] MEDS: CEFTRIAXONE 1 GM in DEXTROSE 5%-WATER - 50 ML IVPB SCH (10:30)
[2019-07-04] MEDS: AZITHROMYCIN IVPB 500 MG/250 ML BAG IVPB SCH (10:31)
[2019-07-04] MEDS: RANOLAZINE E.R. 1,000 MG TABLET (FP) PO SCH ×2 (10:34→22:51)
[2019-07-04] MEDS: OSELTAMIVIR PHOSPHATE 75 MG CAPSULE PO SCH ×2 (10:34→22:50)
--- NOTE | 2019-07-04 14:05 | PN ---
Progress Note (short form) - Note Progress Note: Patient is comfortable no fever no chills still having mild cough but no nausea vomiting. He has good appetite he is eating well He is ambulatory He is IV antibiotic at this time Vital signs Vital Signs Period Temp Pulse Resp BP Sys/Smart Pulse Ox Last 24 Hr 97.9 F-98.5 F 64-74 17-20 106-141/60-72 95 Physical Exam general: resting in bed, +hoarse voice heent: NCAT cardio: S1, S2 RRR. no r/m/g pulm: +wheezes. no accessory m usage abdomen: nontender, nondistended. obese LE: 2+ pulses no edema neuro: medical orderly 2-12 grossly intact CBC, BMP 07/04/19 07:23 07/04/19 07:23 Microbiology 07/02/19 20:55 Sputum - Expectorated Gram Stain - Final 07/02/19 20:40 Urine For Antigen Detection Legionella Antigen - Final 07/02/19 20:40 Urine For Antigen Detection Streptococcus pneumoniae Antigen (M - Final 07/01/19 14:41 Urine - Urine Clean Catch Urine Culture - Final Klebsiella Pneumoniae 07/01/19 14:18 Blood - Peripheral Venous Blood Culture - Preliminary NO GROWTH OBTAINED AFTER 48 HOURS, INCUBATION TO CONTINUE FOR 3 DAYS. 07/01/19 14:18 Blood - Peripheral Venous Blood Culture - Preliminary NO GROWTH OBTAINED AFTER 48 HOURS, INCUBATION TO CONTINUE FOR 3 DAYS. Imaging 07/01/19: CXR: LLL infiltrate, suspicious for LLL PNA. 07/01/19: CTAP: WNL; no acute abnormality 07/01/19: EKG: NSR, rate 62bpm, qtc 422ms 07/02/19: chest CT, CTAP: minimal atelectasis L base, calc granuloma in lingula , mucous plugging in LLL. centrilobular emphysema in upper lobes. multiple low density lesions in the liver likely represent cysts. correlation with ultrasound is recommended. kidney cyst - L kidney 1.6cm. calcified plaque aorta , no aneurysm. diverticulosis. radiopaque seeds in prostate. increased density in the dome of the bladder could represent a mass or dense fluid within a bladder diverticulum. ultrasound imaging or cyst warranted. healed rib fx. Assessment/Plan 73-year-old male with history of laryngeal cancer status post resection and radiation, CAD, GERD, hypertension, hyperlipidemia, prostate cancer presenting with cough and congestion, He has a positive test for flu and chest x-ray shows pneumonia Continue Tamiflu 75 twice a day also IV antibiotics stool tests are still pending for diarrhea seen by urologist and order bladder sonogram He has high creatinine of 1.6 Dr. Sandoval on the case nephrology Current Medications Acetaminophen (Tylenol -) 650 mg PO Q6H PRN PRN Reason: MODERATE PAIN Atorvastatin Calcium (Lipitor -) 40 mg PO HS [facility] Last Admin: 07/03/19 22:17 Dose: 40 mg Chlorthalidone (Hygroton -) 25 mg PO DAILY [facility] Last Admin: 07/04/19 10:34 Dose: 25 mg Ceftriaxone Sodium 1 gm/ (Dextrose) 50 mls @ 100 mls/hr IVPB DAILY [facility] Last Admin: 07/04/19 10:30 Dose: 100 mls/hr Azithromycin (Zithromax 500mg Ivpb (Pre-Docked)) 500 mg in 250 mls @ 250 mls/ hr IVPB DAILY [facility] Last Admin: 07/04/19 10:31 Dose: 250 mls/hr Sodium Chloride (1/2 Normal Saline) 1,000 mls @ 75 mls/hr IV ASDIR [facility] Last Admin: 07/03/19 18:09 Dose: 75 mls/hr Oseltamivir Phosphate (Tamiflu -) 75 mg PO BID [facility] Stop: 07/06/19 21:59 Last Admin: 07/04/19 10:34 Dose: 75 mg Propranolol HCl (Inderal La -) 160 mg PO HS [facility] Last Admin: 07/03/19 22:17 Dose: 160 mg Ranolazine (Ranexa -) 1,000 mg PO BID [facility] Last Admin: 07/04/19 10:34 Dose: 1,000 mg Visit type - Emergency Visit Emergency Visit: Yes ED Registration Date: 07/01/19 Care time: The patient presented to the Emergency Department on the above date and was hospitalized for further evaluation of their emergent condition. - New Patient This patient is new to me today: Yes Date on this admission: 07/04/19 - Critical Care Critical Care patient: No - Discharge Referral Referred to [facility] No
[2019-07-04] MEDS ORDERED: BENZOCAINE/MENTH/CETYLPYRD CL 1 EACH LOZENGE MM PRN (15:52)
[2019-07-04] MEDS ORDERED: SODIUM CHLORIDE 0.45% 1,000 ML IV SCH (18:55)
--- NOTE | 2019-07-04 18:55 | PN ---
Progress Note, Physician History of Present Illness: Pt seen and examined at bedside. He is awake and alert. He denies diarrhea. He denies shortness of breath. - Current Medication List Current Medications: Active Medications Acetaminophen (Tylenol -) 650 mg PO Q6H PRN PRN Reason: MODERATE PAIN Atorvastatin Calcium (Lipitor -) 40 mg PO HS [facility] Last Admin: 07/03/19 22:17 Dose: 40 mg Benzocaine/Menthol (Cepacol Lozenge -) 1 each MM Q6H PRN PRN Reason: SORE THROAT Chlorthalidone (Hygroton -) 25 mg PO DAILY [facility] Last Admin: 07/04/19 10:34 Dose: 25 mg Ceftriaxone Sodium 1 gm/ (Dextrose) 50 mls @ 100 mls/hr IVPB DAILY [facility] Last Admin: 07/04/19 10:30 Dose: 100 mls/hr Azithromycin (Zithromax 500mg Ivpb (Pre-Docked)) 500 mg in 250 mls @ 250 mls/ hr IVPB DAILY [facility] Last Admin: 07/04/19 10:31 Dose: 250 mls/hr Sodium Chloride (1/2 Normal Saline) 1,000 mls @ 75 mls/hr IV ASDIR [facility] Last Admin: 07/03/19 18:09 Dose: 75 mls/hr Oseltamivir Phosphate (Tamiflu -) 75 mg PO BID [facility] Stop: 07/06/19 21:59 Last Admin: 07/04/19 10:34 Dose: 75 mg Propranolol HCl (Inderal La -) 160 mg PO [facility] Last Admin: 07/03/19 22:17 Dose: 160 mg Ranolazine (Ranexa -) 1,000 mg PO BID [facility] Last Admin: 07/04/19 10:34 Dose: 1,000 mg - Objective Vital Signs: Vital Signs Temperature 97.8 F 07/04/19 17:20 Pulse Rate 64 07/04/19 17:20 Respiratory Rate 20 07/04/19 17:20 Blood Pressure 144/70 07/04/19 17:20 O2 Sat by Pulse Oximetry (%) 95 07/04/19 09:00 Constitutional: Yes: Calm Eyes: Yes: Conjunctiva Clear HENT: Yes: Atraumatic Neck: Yes: Supple Cardiovascular: Yes: S1, S2 Respiratory: Yes: CTA Bilaterally Gastrointestinal: Yes: Normal Bowel Sounds, Soft Genitourinary: Yes: WNL Musculoskeletal: Yes: WNL Edema: No Neurological: Yes: Oriented Psychiatric: Yes: Oriented Labs: CBC, BMP 07/04/19 07:23 07/04/19 07:23 Problem List - Problems (1) RONALDO (acute kidney injury) Code(s): N17.9 - ACUTE KIDNEY FAILURE, UNSPECIFIED (2) Dehydration Code(s): E86.0 - DEHYDRATION (3) Influenza A Code(s): J10.1 - FLU DUE TO OTH IDENT INFLUENZA VIRUS W OTH RESP MANIFEST Assessment/Plan Current Medications Generic Name Dose Route Start Last Admin Trade Name Freq PRN Reason Stop Dose Admin Acetaminophen 650 mg 07/02/19 12:53 Tylenol - PO Q6H PRN MODERATE PAIN Atorvastatin Calcium 40 mg 07/02/19 22:00 07/03/19 22:17 Lipitor - PO 40 mg HS CINDY Administration Benzocaine/Menthol 1 each 07/04/19 15:52 Cepacol Lozenge - MM Q6H PRN SORE THROAT Chlorthalidone 25 mg 07/04/19 10:00 07/04/19 10:34 Hygroton - PO 25 mg DAILY CINDY Administration Ceftriaxone Sodium 1 gm/ 50 mls @ 100 mls/hr 07/02/19 10:00 07/04/19 10:30 Dextrose IVPB 100 mls/hr DAILY [facility] Administration Azithromycin 500 mg in 250 mls @ 250 mls/hr 07/03/19 10:00 07/04/19 10:31 Zithromax 500mg Ivpb (Pre-Docked) IVPB 250 mls/hr DAILY [facility] Administration Sodium Chloride 1,000 mls @ 75 mls/hr 07/03/19 17:45 07/03/19 18:09 1/2 Normal Saline IV 75 mls/hr ASDIR CINDY Administration Oseltamivir Phosphate 75 mg 07/01/19 22:00 07/04/19 10:34 Tamiflu - PO 07/06/19 21:59 75 mg BID CINDY Administration Propranolol HCl 160 mg 07/02/19 22:00 07/03/19 22:17 Inderal La - PO 160 mg HS C[facility]Y Administration Ranolazine 1,000 mg 07/02/19 10:00 07/04/19 10:34 Ranexa - PO 1,000 mg BID CINDY Administration Impression 1. RONALDO 2. htn 3. influenza 4. prostate cancer 5. laryngeal cancer 6. hld Plan - hold chlorthalidone for now - decrease fluids - repeat labs in am - arb on hold - likely pre-renal disease - avoid nsaids
[2019-07-04] MEDS: SODIUM CHLORIDE 0.45% 1,000 ML IV SCH ×2 (19:29→23:06)
[2019-07-04] MEDS ORDERED: PT OWN MED DRAWER 7, Y5N ONE (22:39)
[2019-07-04] MEDS: ATORVASTATIN CA 40 MG TABLET (FP) PO SCH (22:50)
[2019-07-05] MEDS ORDERED: cefTRIAXone SODIUM 1 GM VIAL ONE (08:34)
[2019-07-05] MEDS ORDERED: DEXTROSE 5%-WATER - 50 ML IVPB ONE (08:34)
[2019-07-05 08:41] LABS: BILIRUBIN,TOTAL 0.7 mg/dL (0.2-1); BLOOD UREA NITROGEN 22.6 mg/dL (7-18); CALCIUM 8.8 mg/dL (8.5-10.1); CREATININE 1.5 mg/dL (0.55-1.3); POTASSIUM 4.1 mmol/L (3.5-5.1); TOT PROT 5.8 g/dl (6.4-8.2)
[2019-07-05] MEDS: OSELTAMIVIR PHOSPHATE 75 MG CAPSULE PO SCH (10:56)
[2019-07-05] MEDS: CEFTRIAXONE 1 GM in DEXTROSE 5%-WATER - 50 ML IVPB SCH (10:56)
[2019-07-05] MEDS: AZITHROMYCIN IVPB 500 MG/250 ML BAG IVPB SCH (10:56)
[2019-07-05] MEDS: RANOLAZINE E.R. 1,000 MG TABLET (FP) PO SCH (10:56)
[2019-07-05 11:14] VITALS: BP 129/75; PULSE 63; TEMP 98.2
[2019-07-05] MEDS ORDERED: ALBUTEROL SO4 8 GM HFA INHALER IH PRN (12:30)
--- NOTE | 2019-07-05 12:41 | PN ---
Teaching Attending Note Name of Resident: Charity Kingsley ATTENDING PHYSICIAN STATEMENT I saw and evaluated the patient. I reviewed the resident's note and discussed the case with the resident. I agree with the resident's findings and plan as documented. SUBJECTIVE: Patient feels improved still complaint of cough OBJECTIVE: Vital Signs Temperature 98.2 F 07/05/19 10:00 Pulse Rate 63 07/05/19 10:00 Respiratory Rate 18 07/05/19 10:00 Blood Pressure 129/75 07/05/19 10:00 O2 Sat by Pulse Oximetry (%) 94 L 07/04/19 20:10 General: Elderly man, comfortable, not in distress, complaint of cough HEENT; mucous membranes moist, no anemia, no jaundice, PERRLA, no nystagmus Neck: No JVD, supple, no bruit, thyroid palpably normal, normal carotid pulsations. Chest: Nontender, bilateral wheezing. CVS: S1-S2 regular/irregular no murmur/gallop/rub Abdomen: Nondistended, soft, bowel sounds present. Extremities: No edema., No cough tenderness, pulses present CONSTRUCTION PROJECT COORDINATOR: AO X3 , no gross motor sensory deficit CBC, BMP 07/04/19 07:23 07/05/19 06:37 Active Medications Acetaminophen (Tylenol -) 650 mg PO Q6H PRN PRN Reason: MODERATE PAIN Albuterol Sulfate (Ventolin Hfa Inhaler -) 2 puff IH Q4H PRN PRN Reason: SHORT OF BREATH/WHEEZING Atorvastatin Calcium (Lipitor -) 40 mg PO HS [facility] Last Admin: 07/04/19 22:50 Dose: 40 mg Benzocaine/Menthol (Cepacol Lozenge -) 1 each MM Q6H PRN PRN Reason: SORE THROAT Ceftriaxone Sodium 1 gm/ (Dextrose) 50 mls @ 100 mls/hr IVPB DAILY [facility] Last Admin: 07/05/19 10:56 Dose: 100 mls/hr Azithromycin (Zithromax 500mg Ivpb (Pre-Docked)) 500 mg in 250 mls @ 250 mls/ hr IVPB DAILY [facility] Last Admin: 07/05/19 10:56 Dose: 250 mls/hr Sodium Chloride (1/2 Normal Saline) 1,000 mls @ 83 mls/hr IV ASDIR [facility] Last Admin: 07/04/19 23:06 Dose: 83 mls/hr Oseltamivir Phosphate (Tamiflu -) 75 mg PO BID [facility] Stop: 07/06/19 21:59 Last Admin: 07/05/19 10:56 Dose: 75 mg Prednisone (Deltasone -) 30 mg PO DAILY [facility] Propranolol HCl (Inderal La -) 160 mg PO HS [facility] Last Admin: 07/04/19 22:52 Dose: 160 mg Ranolazine (Ranexa -) 1,000 mg PO BID [facility] Last Admin: 07/05/19 10:56 Dose: 1,000 mg ASSESSMENT AND PLAN: 73-year-old male history of hypertension, CAD, hypercholesteremia admitted with cough fever and shortness of breath, influenza B+ patient is refusing empiric treatment for pneumonia remained afebrile CBC normal initial RONALDO improved with IV hydration. Plan: Switch to p.o. Keflex and azithromycin total 5 to 7 days of antibiotic complete course of Tamiflu, add on albuterol MDI as needed and short course of prednisone 30 mg for 5 days , follow-up with PMD in a week Problem List - Problems (1) Influenza A Assessment/Plan: Continue Tamiflu for total 5 days cough suppressant as needed. Problems reviewed: Yes Code(s): J10.1 - FLU DUE TO OTH IDENT INFLUENZA VIRUS W OTH RESP MANIFEST (2) Pneumonia involving left lung Assessment/Plan: Post viral pneumonia continue antibiotic for 7 days and azithromycin for 5 days Problems reviewed: Yes Code(s): J18.9 - PNEUMONIA, UNSPECIFIED ORGANISM Qualifiers: Pneumonia type: due to unspecified organism Lung location: lower lobe of lung Qualified Code(s): J18.9 - Pneumonia, unspecified organism (3) Reactive airway disease Assessment/Plan: Post viral reactive airway disease prednisone 30 mg for 5 days and albuterol MDI as needed Problems reviewed: Yes Code(s): J45.909 - UNSPECIFIED ASTHMA, UNCOMPLICATED (4) RONALDO (acute kidney injury) Assessment/Plan: Due to dehydration continue IV hydration during hospitalization and increase p.o. hydration creatinine trended almost at baseline. Problems reviewed: Yes Code(s): N17.9 - ACUTE KIDNEY FAILURE, UNSPECIFIED (5) Dehydration Assessment/Plan: Resolved Problems reviewed: Yes Code(s): E86.0 - DEHYDRATION (6) Hyperlipidemia Assessment/Plan: On a statin Problems reviewed: Yes Code(s): E78.5 - HYPERLIPIDEMIA, UNSPECIFIED (7) Hypertension Assessment/Plan: Blood pressures well controlled continue all home medications Problems reviewed: Yes Code(s): I10 - ESSENTIAL (PRIMARY) HYPERTENSION (8) CAD (coronary artery disease) Assessment/Plan: Stable continue home medications Problems reviewed: Yes Code(s): I25.10 - ATHSCL HEART DISEASE OF [place] CORONARY ARTERY W/O ANG PCTRS (9) Prostate cancer Assessment/Plan: Follow-up with [facility] Problems reviewed: Yes Code(s): C61 - MALIGNANT NEOPLASM OF PROSTATE
[2019-07-05] MEDS ORDERED: predniSONE 10 MG TABLET (UD) PO SCH (13:00)
--- NOTE | 2019-07-05 14:05 | DS ---
Physical Exam: SUBJECTIVE: Patient seen and examined at bedside. States breathing has improved. Ready to go home. OBJECTIVE: Vital Signs Period Temp Pulse Resp BP Sys/Smart Pulse Ox Last 24 Hr 97.8 F-98.8 F 62-85 14-20 120-144/60-78 94 Physical Exam general: resting in bed, +hoarse voice (chronic) heent: NCAT cardio: S1, S2 RRR. no r/m/g pulm: +few wheezes. no accessory m usage abdomen: nontender, nondistended. 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 LABS Laboratory Results - last 24 hr 07/05/19 06:37 Sodium 140 Potassium 4.1 Chloride 110 H Carbon Dioxide 25 Anion Gap 6 L BUN 22.6 H Creatinine 1.5 H Est GFR (CKD-EPI)AfAm 52.03 Est GFR (CKD-EPI)NonAf 44.89 Random Glucose 102 Calcium 8.8 Total Bilirubin 0.7 AST 16 ALT 18 Alkaline Phosphatase 36 L Total Protein 5.8 L Albumin 3.0 L 07/01/19 07/02/19 07/03/19 10:57 05:40 07:20 WBC 2.5 L 2.7 L 2.6 L Hgb 12.1 11.6 L 11.4 L Hct 36.7 34.4 L 33.9 L Plt Count 178 175 165 07/04/19 07:23 WBC 3.8 L Hgb 11.3 L Hct 33.8 L Plt Count 179 07/01/19 07/02/19 07/03/19 10:57 05:40 07:20 Sodium 137 140 140 Potassium 4.1 4.0 4.0 Chloride 107 110 H 107 BUN 48.1 H 38.7 H 30.2 H Creatinine 2.5 H 1.9 H 1.6 H Random Glucose 99 96 96 AST 26 23 16 ALT 29 25 20 Alkaline Phosphatase B-Natriuretic Peptide 470.8 H Albumin 3.5 3.3 L 3.2 L Prostate Specific Ag TSH 1.88 07/04/19 07/04/19 07/05/19 07:23 07:23 06:37 Sodium 141 140 Potassium 4.4 4.1 Chloride 110 H 110 H BUN 29.0 H 22.6 H Creatinine 1.6 H 1.5 H Random Glucose 109 H 102 AST 17 16 ALT 22 18 Alkaline Phosphatase 36 L B-Natriuretic Peptide Albumin 3.2 L 3.0 L Prostate Specific Ag Pending TSH 07/01/19 07/01/19 07/01/19 10:42 14:41 14:41 Urine Osmolality 375 U Random Total Protein Ur Random Sodium 41 Ur Random Urea Nitrogn Hep C Ab Diagnostic HIV 1&2 Ag/Ab, 4th Gen Influenza A (Rapid) Positive A Influenza B (Rapid) Negative RSV Rapid 07/01/19 07/02/19 07/02/19 14:41 05:40 20:40 Urine Osmolality U Random Total Protein 31.9 H Ur Random Sodium Ur Random Urea Nitrogn 841 Hep C Ab Diagnostic 0.1 HIV 1&2 Ag/Ab, 4th Gen Non reactive Influenza A (Rapid) Influenza B (Rapid) RSV Rapid 07/03/19 00:00 Urine Osmolality U Random Total Protein Ur Random Sodium Ur Random Urea Nitrogn Hep C Ab Diagnostic HIV 1&2 Ag/Ab, 4th Gen Influenza A (Rapid) Influenza B (Rapid) RSV Rapid Negative Microbiology 07/02/19 20:55 Sputum - Expectorated Gram Stain - Final 07/02/19 20:55 Sputum - Expectorated Sputum Culture - Final NORMAL RESPIRATORY ZAINAB 07/02/19 20:40 Urine For Antigen Detection Legionella Antigen - Final 07/02/19 20:40 Urine For Antigen Detection Streptococcus pneumoniae Antigen (M - Final 07/01/19 14:41 Urine - Urine Clean Catch Urine Culture - Final Klebsiella Pneumoniae 07/01/19 14:18 Blood - Peripheral Venous Blood Culture - Preliminary NO GROWTH OBTAINED AFTER 72 HOURS, INCUBATION TO CONTINUE FOR 2 DAYS. 07/01/19 14:18 Blood - Peripheral Venous Blood Culture - Preliminary NO GROWTH OBTAINED AFTER 72 HOURS, INCUBATION TO CONTINUE FOR 2 DAYS. Imaging 07/01/19: CXR: LLL infiltrate, suspicious for LLL PNA. 07/01/19: CTAP: WNL; no acute abnormality 07/01/19: EKG: NSR, rate 62bpm, qtc 422ms 07/02/19: chest CT, CTAP: minimal atelectasis L base, calc granuloma in lingula , mucous plugging in LLL. centrilobular emphysema in upper lobes. multiple low density lesions in the liver likely represent cysts. correlation with ultrasound is recommended. kidney cyst - L kidney 1.6cm. calcified plaque aorta , no aneurysm. diverticulosis. radiopaque seeds in prostate. increased density in the dome of the bladder could represent a mass or dense fluid within a bladder diverticulum. ultrasound imaging or cyst warranted. healed rib fx. 07/03/19: renal, bladder, abd sono: no obvious bladder diverticulum or mass lesion, correlation w cystoscopy suggested. post void residual 70 cc. prevoid 390 cc. bilateral simple renal cortical cysts seen. 2.3cm R inferior hepatic lobe cyst containing a mildly thickened internal septation. correlation with 3 month folow up sono is suggested to document stability and lac of developing pathology. several smaller simple appearing hepatic cysts are visualized. s/p cholecystectomy. 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 #CAP, flu+ -w/ LLL infiltrate, fluA+ -on cef, zithro (07/02); d/c home on keflex, zithro (07/05) to complete 7 day course -on tamiflu 75mg BID (07/01)- 2 doses left to complete course. will d/c on -also sent on prednisone taper, albuterol PRN inhaler -ucx (+) klesbsiella -cx (-) as above -encourage PO intake -Tylenol PRN for fever/pain #R/o ?bladder diverticulum -has hx prostate CA -renal , bladder sono as above. reviewed by uro; for cystoscopy as outpatient -uro to f/u PSA level done inpatient -uro consulted: Dr. Lawson #hx liver cysts -as seen on CTAP -will need f/u outpatient of liver cysts #RONALDO vs. RONALDO on CKD -hold ARB for now; should not be on 2 ARB agents, have dc from list -encourage PO intake -will need close nephro f/u -Nephro: Dr. Sandoval #CAD -c/w ranexa #HTN -c/w propranolol Minutes to complete discharge: 45 Discharge Summary Problems reviewed: Yes Reason For Visit: ACUTE KIDNEY INJURY;INFLUENZA DUE TO VIRUS TYPE A Current Active Problems RONALDO (acute kidney injury) (Acute) Dehydration (Acute) Influenza A (Acute) Pneumonia involving left lung (Acute) Prostate cancer (Acute) Reactive airway disease (Acute) Condition: Improved - Instructions Diet, Activity, Other Instructions: You were in the hospital because you had pneumonia and influenza (flu). You were treated with antibiotics. During this time, you also had mild injury to your kidney, which was likely from dehydration. You were given fluids. You have improved and are being sent home. Medications Please take the following medications at home: -Azithromycin 500mg (1 pill)a day, for the next 4 days (starting tomorrow) ( antibiotic for pneumonia) -Keflex 500mg (1 pill), twice a day, for the next 4 days (starting tomorrow) ( antibiotic for pneumonia) -Tamiflu - 2 pills; one tonight and one tomorrow to complete the course (to treat the flu) You may continue your other home medications; however note: We have temporarily discontinued your losartan since your kidney numbers were elevated (your creatinine). Please discuss this with your primary care doctor this week. Also, do not take olmesartan. You should not be on both losartan and olmesartan, they are the same medication class. You may continue your chlorthalidone for now, however you must discuss this with your doctor this week. Care Drink lots of fluids and get plenty of rest Testing You will need a repeat basic metabolic panel (BMP) this week (blood work) to have your kidney numbers checked (creatinine). Follow up Please follow with the following doctors upon your discharge: -Dr. Hyatt - your primary care doctor, within 1 week to discuss your visit -Dr. Sandoval, the button cutting machine operator (kidney doctor) you saw in the hospital - 1 week to have your BMP repeated (basic metabolic panel). He will discuss your chlorthalidone with you (diuretic). -Dr. Lawson, the urologist who saw you in the hospital - to schedule an outpatient cystoscopy - 1 week Referrals: Jatinder Lawson MD [Staff Physician] - 1 Week Paramjit Sandoval MD [Staff Physician] - 1 Week Everette Hyatt MD [Primary Care Provider] - 1 Week Disposition: HOME - Home Medications Comprehensive Discharge Medication List: Ambulatory Orders Ranolazine [Ranexa] 1,000 mg PO BID 02/26/14 Simvastatin [Zocor -] 80 mg PO DAILY 02/26/14 propRANOLol HCL [Inderal LA -] 160 mg PO HS 12/04/14 Chlorthalidone 25 mg PO DAILY 07/01/19 Albuterol Sulfate Inhaler - [Ventolin HFA Inhaler -] 2 puff IH Q4H PRN #1 inhaler 07/05/19 Azithromycin [Zithromax] 500 mg PO DAILY #4 tablet 07/05/19 Cephalexin Monohydrate [Keflex -] 500 mg PO BID #8 capsule 07/05/19 Oseltamivir Phosphate [Tamiflu -] 75 mg PO BID #2 capsule 07/05/19 predniSONE [Deltasone -] 30 mg PO DAILY #7 tablet 07/05/19 This patient is new to me today: No Emergency Visit: No Critical Care patient: No - Discharge Referral Referred to [facility] No
[2019-07-05] MEDS ORDERED: PT OWN MED DRAWER 7, Y5N ONE (14:06)
== END 2019-07-05 15:41 | disposition home or self-care (01) | DRG 194 ==
LOC: JER 10:05 → JERBED 12:46 → J8W 07-02 18:17
PROVIDERS: ADMIT Internal Medicine; ATTEND Internal Medicine
DX: J10.00 Influenza due to other identified influenza virus with unspecified type of pneumonia (principal); N17.9 Acute kidney failure, unspecified; I25.10 Atherosclerotic heart disease of native coronary artery without angina pectoris; E78.5 Hyperlipidemia, unspecified; J45.909 Unspecified asthma, uncomplicated; K21.9 Gastro-esophageal reflux disease without esophagitis; K57.90 Diverticulosis of intestine, part unspecified, without perforation or abscess without bleeding; K29.70 Gastritis, unspecified, without bleeding; K44.9 Diaphragmatic hernia without obstruction or gangrene; E78.00 Pure hypercholesterolemia, unspecified; I10 Essential (primary) hypertension; R19.7 Diarrhea, unspecified; E66.9 Obesity, unspecified; Z68.30 Body mass index [BMI] 30.0-30.9, adult; E86.0 Dehydration; Z88.0 Allergy status to penicillin; Z85.21 Personal history of malignant neoplasm of larynx; Z95.5 Presence of coronary angioplasty implant and graft; Z85.46 Personal history of malignant neoplasm of prostate
CPT/HCPCS: 36415; 71046-TC-FY; 71250-TC; 74176-TC; 76700-TC; 76775-TC; 76856-TC; 80048; 80053; 81003; 83690; 83735; 83880; 83930; 83935; 84100; 84153; 84156; 84300; 84443; 84540; 85025; 85027; 86803; 87040; 87070; 87086; 87186; 87205; 87389; 87804; 87807; 87899; 93005; 93010; 97116-GP; 97161-GP; 99285-25

== ENCOUNTER 2022-11-25 04:25 | Day surgery (SDC) | payer OTHER, BC ==
[2022-11-22 15:50] VITALS: BMI 26.2
[2022-11-25 10:05] VITALS: TEMP 97.7
[2022-11-25 11:17] VITALS: BP 120/60; PULSE 60; RESP 19
== END 2022-11-25 11:35 | disposition home or self-care (01) ==
LOC: JASU-ENDO 04:25
PROVIDERS: ATTEND Internal Medicine Gastroenterology
PROC: 0DB78ZX Excision of Stomach, Pylorus, Via Natural or Artificial Opening Endoscopic, Diagnostic (ICD-10-PCS; 2022-11-25)
PROC: 0DB68ZX Excision of Stomach, Via Natural or Artificial Opening Endoscopic, Diagnostic (ICD-10-PCS; principal; 2022-11-25 11:00)
DX: K29.60 Other gastritis without bleeding (principal)
CPT/HCPCS: 88305-TC; 88342-TC